=== PATIENT | female | born 1935 | race Caucasian/White ===

== ENCOUNTER 2016-11-24 07:01 | Day surgery (SDC) | payer MEDICARE, BC ==
[2016-11-17 14:22] LABS: HEMATOCRIT 39.3 % (36.0-48.0); HEMOGLOBIN 12.5 g/dL (12.0-16.0)
[2016-11-17 14:28] LABS: ASCORBIC ACID (UR NOT ORDER) NEG (NEG); BILIRUBIN, URINE NEGATIVE (NEG); KETONE, URINE NEGATIVE (NEG); LEUKOCYTE ESTERASE(NOT OR NEG (NEG); WBC (NOT ORDERED) (RFLEX) 1 (0-5)
[2016-11-17 14:32] LABS: CHLORIDE, SERUM 104 MMOL/L (96-112); CO2 (CARBON DIOXIDE) 31 MMOL/L (24-34); CREATININE 1.15 MG/DL (0.55-1.02); GFR AFRICAN AMERICAN 52 ML/MIN (>=60); GFR NON AFRICAN AMERICAN 45 ML/MIN (>=60); GLUCOSE, SERUM 81 MG/DL (60-99); POTASSIUM, SERUM 4.3 MMOL/L (3.5-5.3); SODIUM, SERUM 143 MMOL/L (135-148)
[2016-11-17 14:33] LABS: BUN (BLOOD UREA NITROGEN) 27 MG/DL (6-23)
--- NOTE | ~2016-11-24 | OP ---
Record Of Operation [facility] [address] [place]. [address] NAME: IKER FLYNN : 39 STATUS : [facility] PAT#: [id number] AGE: 81 ADM/REG DATE : 11/24/16 MR#: [id number] REPORT SERV DATE: 11/24/16 DICTATED BY: ELIAS FLORES JR. DATE: 11/24/16 REPORT STATUS : Draft TRANSCRIBED BY: MODL DATE: 11/24/16 DATE OF PROCEDURE: 11/24/2016 SURGEON: Elias Flores M.D. PREOPERATIVE DIAGNOSIS: InterStim nonfunctioning. POSTOPERATIVE DIAGNOSIS: InterStim nonfunctioning. PROCEDURE PERFORMED: Removal of InterStim device and lead. COMPLICATIONS: None. CONSULTATIONS: None. ANESTHESIA: General with an endotracheal tube. SPECIMENS: InterStim battery and lead. DRAINS: None. ESTIMATED BLOOD LOSS: 5 mL. INDICATION: Mrs. Flynn is a 81-year-old female who has a history of urgency and urge incontinence. She was treated with InterStim placement several years ago. She has never really realized any benefit from this procedure. She has tried multiple different settings and has not had success. She comes today for removal of the device. PROCEDURE IN DETAIL: After the patient was identified and proper informed consent was obtained, she was taken to the operating room. General anesthesia was performed without complication using an endotracheal tube. She was then prepped and draped in the normal sterile fashion in the prone position. Incision was made overlying her previous scar from the placement of the battery down to the level of the battery itself. The battery was removed and the lead was cut. The area was cauterized and hemostasis was achieved. Irrigation and closure with 3-0 Vicryl and 4-0 Monocryl on the skin. I made a second incision overlying the previous lead placement site, identified the lead, and brought it up using a hemostat. I dissected down along the lead using electrocautery and sharp dissection using [employer] retractors until I was able to see the first of the holding wings from the device. I then removed the device using a hemostat and irrigated that wound as well. I made sure I had good hemostasis and closed using 3-0 Vicryl in the subcutaneous tissue and a 4-0 Monocryl on the skin. The patient was awakened in the operating room and transferred to the postanesthesia care unit in stable condition. [place]/MODL Record Of Operation [facility] [address] [facility] [place] [address] NAME: IKER FLYNN : 39 STATUS : [facility] PAT#: [id number] AGE: 81 ADM/REG DATE : 11/24/16 MR#: [id number] REPORT SERV DATE: 11/24/16 DICTATED BY: ELIAS FLORES JR. DATE: 11/24/16 REPORT STATUS : Draft TRANSCRIBED BY: LUCITA DATE: 11/24/16 Elias Flores Jr., M.D. / [id number] CC: Justin Young Jr., DO
[~2016-11-24 07:01] MED LIST: ALEVE220 MG PO; ASAB PO; ATEN50 PO; CALTRA600D PO; DETROLLA4 PO; FOLIC PO; LIPITOR20 PO; NORCO1 TAB PO; VICODINTAB PO
== END 2016-11-24 17:31 | disposition home or self-care (01) ==
LOC: SDC 07:01
PROVIDERS: Urology
PROC: 0JPT0MZ Removal of Stimulator Generator from Trunk Subcutaneous Tissue and Fascia, Open Approach (ICD-10-PCS; 2016-11-24)
PROC: 01PY0MZ Removal of Neurostimulator Lead from Peripheral Nerve, Open Approach (ICD-10-PCS; principal; 2016-11-24 08:45)
DX: T83.190A Other mechanical complication of urinary electronic stimulator device, initial encounter (principal); T85.191A Other mechanical complication of implanted electronic neurostimulator of peripheral nerve electrode (lead), initial encounter; Z87.448 Personal history of other diseases of urinary system; Z87.440 Personal history of urinary (tract) infections; I10 Essential (primary) hypertension; M19.90 Unspecified osteoarthritis, unspecified site; Z82.49 Family history of ischemic heart disease and other diseases of the circulatory system; Z83.3 Family history of diabetes mellitus; Z98.890 Other specified postprocedural states; Z88.1 Allergy status to other antibiotic agents; Z88.2 Allergy status to sulfonamides; Z79.82 Long term (current) use of aspirin; Z79.899 Other long term (current) drug therapy
CPT/HCPCS: 80048; 81001; 85014; 85018; 93005; A9270-GY; J0330; J1580; J2270; J2405; J3010